=== PATIENT | female | born 2000 | race African-American/Black ===

== ENCOUNTER 2021-04-01 09:31 | Emergency (ER) | payer OTHER ==
[~2021-04-01] VITALS: Ht 162.6 cm; Wt 66.5 kg
[2021-04-01] MEDS ORDERED: IV NORMAL SALINE 1000ML BAG 1,000 ML IV ONE (10:45)
[2021-04-01] MEDS ORDERED: IV NORMAL SALINE 1000ML BAG 1,000 ML IV SCH (10:45)
--- NOTE | 2021-04-01 10:56 | PHYS DOC ---
General Adult EDM: Chief Complaint: BACK PAIN - NO INJURY HPI: HPI: Patient is a 20 year old female who presents with comes in with worsening back pain. She is on Cipro and Zofran for a UTI that she was diagnosed with her primary care on Friday. She is having a fever today in the ED of 100.8. She states her back pain is worse. She states it does hurt when she pees. She states she is still very nauseated and she is getting dizzy. She states she is not really eating or drinking anything. She is not taking any Tylenol or ibuprofen since yesterday. No other past medical history. Patient currently rating her pain a 7 out of 10 aching pain in her back. Review of Systems: Review of Systems: Constitutional: + fever or chills. [] Eyes: Denies change in visual acuity. [] HENT: Denies nasal congestion or sore throat. [] Respiratory: Denies cough or shortness of breath. [] Cardiovascular: Denies chest pain or edema. [] GI: + abdominal pain, +nausea, denies vomiting, bloody stools or diarrhea. [] : Denies dysuria. [] Musculoskeletal: + Left back pain or denies joint pain. [] Integument: Denies rash. [] Neurologic: Denies headache, focal weakness or sensory changes. + Dizziness [] Endocrine: Denies polyuria or polydipsia. [] Lymphatic: Denies swollen glands. [] Psychiatric: Denies depression or anxiety. [] Heart Score: C/O Chest Pain: No Risk Factors: Risk Factors: DM, Current or recent (<one month) smoker, HTN, HLP, family history of CAD, obesity. Risk Scores: Score 0 - 3: 2.5% MACE over next 6 weeks - Discharge Home Score 4 - 6: 20.3% MACE over next 6 weeks - Admit for Clinical Observation Score 7 - 10: 72.7% MACE over next 6 weeks - Early Invasive Strategies Current Medications: Current Medications Medications (Trade) Dose Ordered Sig/[place] Start Time Stop Time Status Last Admin Dose Admin Ketorolac Tromethamine (Toradol 30mg Vial) 30 mg 1X ONCE 04/01/21 11:00 04/01/21 11:01 UNV Sodium Chloride 1,000 ml @ 1,000 mls/hr 1X ONCE 04/01/21 10:45 04/01/21 11:44 UNV Physical Exam: PE: Constitutional: Well developed, well nourished, no acute distress, non-toxic appearance. [] HENT: Normocephalic, atraumatic, bilateral external ears normal, oropharynx moist, no oral exudates, nose normal. [] Eyes: PERRLA, EOMI, conjunctiva normal, no discharge. [] Neck: Normal range of motion, no tenderness, supple, no stridor. [] Cardiovascular:Heart rate regular tachycardic rhythm, no murmur [] Lungs & Thorax: Bilateral breath sounds clear to auscultation [] Abdomen: Bowel sounds normal, soft, left upper and side tenderness, no masses, no pulsatile masses. [] Skin: Warm, dry, no erythema, no rash. [] Back: No tenderness, left CVA tenderness. [] Extremities: No tenderness, no cyanosis, no clubbing, ROM intact, no edema. [] Neurologic: Alert and oriented X 3, normal motor function, normal sensory function, no focal deficits noted. [] Psychologic: Affect normal, judgement normal, mood normal. [] Current Patient Data: Labs: Laboratory Tests Test 04/01/21 10:27 POC Urine HCG, Qualitative Hcg negative (Negative) EKG: EKG: [] Radiology/Procedures: Radiology/Procedures: [] Impression: [facility] [address] [place], [place] [id number] IMAGING REPORT Signed PATIENT: AGUSTIN MENDIOLA ACCOUNT: [id number] : 2000 LOCATION: ER AGE: 20 SEX: F EXAM STATUS: REG ER ORD. PHYSICIAN: CORINE TORREZ APRN REASON: uti, fever, back pain PROCEDURE: CT ABD PELV W/ IV CONTRST ONLY CT scan of the abdomen and pelvis with contrast 04/01/2021 CLINICAL HISTORY: UTI. Fever. TECHNIQUE: After the intravenous administration of 75 cc of Omnipaque 300 only, contiguous, 2.5 mm axial sections were obtained through the abdomen and pelvis. One or more of the following individualized dose reduction techniques were utilized for this study: 1. Automated exposure control. 2. Adjustment of the mA and/or kV according to patient size. 3. Use of iterative reconstruction technique. FINDINGS: Images through the lung bases demonstrate a right lower lobe consolidative infiltrate. The liver, spleen, pancreas, adrenal glands and kidneys are within normal limits. The abdominal aorta tapers normally. The gallbladder is contracted. No free fluid or free air is within the abdomen. There is no evidence of bowel obstruction. The appendix is partially visualized and is within normal limits. Images through the pelvis demonstrate the urinary bladder to be contracted. A very small amount of free fluid is seen within the pelvis. No adnexal mass is seen. Minimal S-shaped curvature of the thoracolumbar spine is seen. IMPRESSION: 1. Right lower lobe infiltrate consistent with pneumonia. 2. Very small amount of free fluid is seen within the pelvis. Electronically signed by: Lazarus Olivia MD (04/01/2021 1:09 PM) [id number] DICTATED and SIGNED BY: LAZARUS OLIVIA MD DATE: 04/01/21 [id number] 0 Course & Med Decision Making: Course & Med Decision Making Pertinent Labs and Imaging studies reviewed. (See chart for details) COVID-19 CRITERIA: The patient was evaluated during the global COVID-19 pandemic, and that diagnosis was suspected/considered upon their initial pres entation. Their evaluation, treatment and testing was consistent with current guidelines for patients who present with complaints or symptoms that may be related to COVID-19. See HPI. Alert and oriented x4. Ambulatory with a steady gait. Skin pink warm and dry. Patient has left CVA tenderness. She also has left upper abdominal to side tenderness. Abdomen otherwise soft and nontender. She has tachycardic. Speaks in full clear sentences. CT abdomen pelvis showed no acute findings except it is thought that she has an infiltrate in the right base of her lung. Patient is given Rocephin for her UTI and azithromycin for the pneumonia. She states that she did have a rapid Covid yesterday that was negative. We will do a rapid today and a send out Covid test. She is given 2 L of fluid. Patient is stable. [] Dragon Disclaimer: Dragon Disclaimer: This electronic medical record was generated, in whole or in part, using a voice recognition dictation system. COVID-19 Patient Risks: Age 65 or older: No Sign of co-morbidity: No Exp to person + for COVID: No Exp to PUI: No Travel from affected area: No Lower respiratory symptoms: Yes Fever: Yes Other: Yes (NAUSEA) PPE Use: Full PPE with N95 mask or PAPR: Yes Departure Departure Impression: Primary Impression: COVID-19 Additional Impressions: Pneumonia Qualified Codes: J18.9 - Pneumonia, unspecified organism UTI (urinary tract infection) Qualified Codes: N30.01 - Acute cystitis with hematuria Disposition: HOME / SELF CARE / HOMELESS Condition: STABLE Patient Instructions: Pneumonia, Adult, Urinary Tract Infection Additional Instructions: Drink plenty of fluids. Take medication as prescribed. Stop taking the ciprofloxacin and take the medications I have prescribed for you. If you begin having severe chest pain or shortness of breath you need to return to the emergency room. Everyone else around you that or that lives with you also needs to quarantine. Scripts Cephalexin (CEPHALEXIN) 500 Mg Capsule 1 CAP PO TID, #30 CAP Prov: CORINE TORREZ APRN 04/01/21 Ondansetron (ONDANSETRON ODT) 4 Mg Tab.rapdis 1 TAB PO PRN Q6-8HRS, #16 TAB Prov: CORINE TORREZ APRN 04/01/21 Albuterol Sulfate (PROAIR HFA INHALER) 8.5 Gm Hfa.aer.ad 1 PUFF INH PRN Q6HRS PRN for SHORTNESS OF BREATH, #1 EACH 0 Refills Prov: CORINE TORREZ APRN 04/01/21 Methylprednisolone (MEDROL) 4 Mg Tab.ds.pk 1 PKG PO UD, #1 PKG Prov: CORINE TORREZ APRN 04/01/21 Azithromycin (AZITHROMYCIN TABLET) 250 Mg Tablet 1 PKG PO UD for 5 Days, #6 TAB 0 Refills 2 the first day followed by 1 for days 2-5 Prov: CORINE TORREZ APRN 04/01/21 CORINE TORREZ APRN Apr 01, 2021 10:55
[2021-04-01] MEDS ORDERED: KETOROLAC 30 MG/ML VIAL. IVP ONE (11:00)
[2021-04-01 11:43] LABS: BILIRUBIN,URINE SMALL (NEG); CLARITY,URINE CLEAR; COLOR,URINE YELLOW; NITRITE,URINE NEGATIVE (NEG); PH,URINE 6.5 (<5.0-8.0); PROTEIN,URINE >=300 mg/dL (NEG-TRACE); RBC,URINE 0 /HPF (0-2); UROBILINOGEN,URINE 0.2 mg/dL (0.2 mg/dL); WBC,URINE >40 /HPF (0-4)
[2021-04-01 11:44] LABS: BACTERIA,URINE MANY /HPF (0-FEW)
[2021-04-01] MEDS ORDERED: cefTRIAXone IV Push 1 GM VIAL. IVP ONE (12:15)
[2021-04-01 12:27] LABS: CALCIUM 8.2 mg/dL (8.5-10.1); CREATININE 0.9 mg/dL (0.6-1.0); GFR 97.6; POTASSIUM 3.7 mmol/L (3.5-5.1)
[2021-04-01 12:32] LABS: ALBUMIN 3.1 g/dL (3.4-5.0); ALBUMIN/GLOBULIN RATIO 0.8 (1.0-1.7); TOTAL PROTEIN 6.9 g/dL (6.4-8.2)
[2021-04-01] MEDS ORDERED: IOHEXOL 300 MG/ML 100ML VIAL. IV ONE (13:00)
--- NOTE | 2021-04-01 13:12 | RAD ---
CT scan of the abdomen and pelvis with contrast 04/01/2021 CLINICAL HISTORY: UTI. Fever. TECHNIQUE: After the intravenous administration of 75 cc of Omnipaque 300 only, contiguous, 2.5 mm ax ial sections were obtained through the abdomen and pelvis. One or more of the following individualized dose reduction techniques were utilized for this study: 1. Automated exposure control. 2. Adjustment of the mA and/or kV according to patient size. 3. Use of iterative reconstruction technique. FINDINGS: Images through the lung bases demonstrate a right lower lobe consolidative infiltrate. The liver, spleen, pancreas, adrenal glands and kidneys are within normal limits. The abdominal aorta tapers normally. The gallbladder is contracted. No free fluid or free air is with in the abdomen. There is no evidence of bowel obstruction. The appendix is partially visualized and i s within normal limits. Images through the pelvis demonstrate the urinary bladder to be contracted. A very small amount of fr ee fluid is seen within the pelvis. No adnexal mass is seen. Minimal S-shaped curvature of the thorac olumbar spine is seen. IMPRESSION: 1. Right lower lobe infiltrate consistent with pneumonia. 2. Very small amount of free fluid is seen within the pelvis. Electronically signed by: Lazarus Olivia MD (04/01/2021 1:09 PM) [id number]
[2021-04-01] MEDS ORDERED: AZITHRMYCN 500MG IVPB FOR OMNI 250 ML IV ONE (13:15)
--- NOTE | 2021-04-01 13:54 | RAD ---
XR CHEST 1V History: Reason: CT ABD PELV SHOWED PNEUMONIA / Spl. Instructions: / History: Comparison: None. Findings: Right lower lobe consolidation. No pleural effusion. No pneumothorax. Normal heart size. Contrast not ed within the renal collecting systems from recent CT. Impression: 1. Right lower lobe consolidation, concerning for pneumonia. Electronically signed by: Fred Prieto DO (04/01/2021 1:52 PM) [id number]
[2021-04-01 14:10] LABS: BASO % 1 % (0-3); EOS % 0 % (0-3); HEMOGLOBIN 9.8 g/dL (12.0-15.5); LYMPH # 0.8 x10^3/uL (1.0-4.8); LYMPH % 29 % (24-48); MEAN CORPUSCULAR HEMOGLOBIN 22 pg (25-35); MEAN CORPUSCULAR HGB CONC 32 g/dL (31-37); MEAN CORPUSCULAR VOLUME 70 fL (79-100); MONO # 0.2 x10^3/uL (0.0-1.1); MONO % 8 % (0-9); NEUT # 1.8 x10^3/uL (1.8-7.7); NEUT % 63 % (31-73); PLATELET COUNT 150 x10^3/uL (140-400); RED BLOOD COUNT 4.44 x10^6/uL (3.50-5.40); RED CELL DISTRIBUTION WIDTH 13.9 % (11.5-14.5); WHITE BLOOD COUNT 2.9 x10^3/uL (4.0-11.0)
[2021-04-01] MEDS ORDERED: ONDA4TAB12 PO (14:31)
[2021-04-01] MEDS ORDERED: METH4TAB2 PO (14:31)
[2021-04-01] MEDS ORDERED: ALBU2.5V8 INH (14:31)
[2021-04-01] MEDS ORDERED: AZIT250T6 PO (14:31)
[2021-04-01] MEDS ORDERED: CEPH500C PO (14:31)
[2021-04-01 15:11] LABS: HYPOCHROMIA MOD; PLT ESTIMATE ADEQUATE (ADEQUATE)
[2021-04-01 15:12] LABS: MICROCYTOSIS MOD; OVALOCYTES PRESENT; POIKILOCYTOSIS SLIGHT
[2021-04-01 15:35] VITALS: BP 127/79
[2021-04-01] MEDS ORDERED: DICYCLOMINE HCL 10 MG CAPSULE PO ONE (16:15)
== END 2021-04-01 17:01 | disposition home or self-care (01) ==
LOC: ER 09:31
DX: U07.1 COVID-19 (principal); J18.9 Pneumonia, unspecified organism; N30.01 Acute cystitis with hematuria
CPT/HCPCS: 36415; 71045; 74177; 80053; 81001; 81025; 83605; 83690; 85025; 87040; 87086; 87426; 96361; 96365; 96375; 99285; J0456; J0696; J1885; J7030; Q9967; 96374